=== PATIENT | female | born 1995 | race Two or more races ===

== ENCOUNTER 2016-06-06 13:27 | Emergency (ER) | payer OTHER ==
[2016-06-06 13:52] VITALS: RESP 16
[2016-06-06] MEDS ORDERED: NS 1,000 ML IV ONE (13:52)
[2016-06-06] MEDS ORDERED: ONDANSETRON 4 MG/2 ML VIAL IVP ONE (13:58)
--- NOTE | 2016-06-06 13:58 | UCPHY ---
H & P Time Seen by Provider: 06/06/16 13:37 Patient Type: New HPI/ROS: CHIEF COMPLAINT: Vomiting, UTI HISTORY OF PRESENT ILLNESS: The patient is a 21-year-old female who presents to the emergency department with vomiting since early this morning. The patient was woken from sleep with multiple episodes of vomiting. This has persisted throughout the morning. She denies any focal abdominal pain. No diarrhea. The patient states she has a UTI. 4 days ago she developed dysuria, hematuria and frequency. She has been self treating at home because she was concerned about antibiotics giving her yeast infection. No fevers or chills. No flank pain. REVIEW OF SYSTEMS: My complete review of systems is negative except as mentioned in the HPI. Past Medical/Surgical History: Includes WPW, AVNRT Past surgical history: Ablation x2 Social history: [facility] Smoking Status: Current some day smoker Physical Exam: Vitals noted GENERAL: Well-appearing, in no acute distress, alert. HEENT: Eyes normal to inspection, normal pharynx, no signs of dehydration. NECK: No thyromegaly, no lymphadenopathy, supple. RESPIRATORY: Clear to auscultation bilaterally, no rales, rhonchi or wheezing. CVS: Regular rate and rhythm, no rubs, murmurs, or gallops. ABDOMEN: Soft, nontender, nondistended, no organomegaly. Benign BACK: Normal to inspection, no CVA tenderness. SKIN: Normal color, no rash, warm, dry. No pallor. Multiple tattoos EXTREMITIES: No pedal edema, no calf tenderness, no Homans sign or cords, no joint swelling. NEURO/PSYCH: [Alert and oriented, normal mood and affect, normal motor sensory exam. Constitutional: Initial Vital Signs Temperature (C) 36.4 C 06/06/16 13:45 Heart Rate 80 06/06/16 13:45 Respiratory Rate 16 06/06/16 13:45 Blood Pressure 105/68 06/06/16 13:45 O2 Sat (%) 98 06/06/16 13:45 O2 Delivery Mode Room Air Allergies/Adverse Reactions: ibuprofen Allergy (Verified 06/06/16 13:44) Home Medications: Medication Instructions Recorded Cephalexin [Keflex (*)] 500 mg PO QID 7 Days 06/06/16 Ondansetron Odt [Zofran Odt 4 mg 4 mg PO Q4PRN PRN #7 tab 06/06/16 (*)] Phenazopyridine HCl [Pyridium] 100 mg PO TID #6 tab 06/06/16 Medical Decision Making ED Course/Re-evaluation: I discussed the plan with the patient and answered all her questions. When she arrived she appeared well. IV was placed. She was given normal saline 1 L for hydration. She was given Zofran 4 mg IV for her nausea and recent vomiting. Laboratory studies including urine were ordered. Patient was noted to have a positive UA. The patient was given Rocephin 1 g IV. I discussed the findings and explained the results. I rechecked the patient while here. She was doing well. She had no further episodes of emesis. Prior to discharge her abdomen was soft, nontender nondistended. I gave patient warnings prior to leaving. She will return with worsening symptoms. Differential Diagnosis: My differential includes but is not limited to urinary tract infection, pyelonephritis, bacteremia, sepsis, electrolyte abnormality, sugar abnormality, dysrhythmia, obstruction, perforation, peptic ulcer disease, , ectopic - Data Points Laboratory Results: Laboratory Results 06/06/16 13:54 06/06/16 13:54 06/06/16 06/06/16 06/06/16 14:00 13:54 13:54 WBC RBC Hgb Hct MCV MCH MCHC RDW Plt Count MPV Neut % (Auto) Lymph % (Auto) [place] % (Auto) Eos % (Auto) Baso % (Auto) Nucleat RBC Rel Count Absolute Neuts (auto) Absolute Lymphs (auto) Absolute Monos (auto) Absolute Eos (auto) Absolute Basos (auto) Absolute Nucleated RBC Immature Gran % Immature Gran # Sodium 140 mEq/L mEq/L (134-144) Potassium 4.2 mEq/L mEq/L (3.5-5.2) Chloride 104 mEq/L mEq/L (97-110) Carbon Dioxide 23 mEq/l mEq/l (22-31) Anion Gap 13 mEq/L mEq/L (8-16) BUN 13 mg/dL mg/dL (7-23) Creatinine 0.8 mg/dL mg/dL (0.6-1.0) Estimated GFR > 60 Glucose 82 mg/dL mg/dL (70-100) Calcium 9.6 mg/dL mg/dL (8.5-10.4) Beta HCG, Qual NEGATIVE Urine Color YELLOW Urine Appearance CLOUDY Urine pH 8.5 H (5.0-7.5) Ur Specific [place] 1.015 (1.002-1.030) Urine Protein TRACE H (NEGATIVE) Urine Ketones 1+ H (NEGATIVE) Urine Blood NEGATIVE (NEGATIVE) Urine Nitrate NEGATIVE (NEGATIVE) Urine Bilirubin NEGATIVE (NEGATIVE) Urine Urobilinogen 0.2 EU EU (0.2-1.0) Ur Leukocyte Esterase NEGATIVE (NEGATIVE) Urine RBC 5-10 /hpf H /hpf (0-3) Urine WBC 25-50 /hpf H /hpf (0-3) Ur Epithelial Cells 2+ /lpf H /lpf (NONE-1+) Urine Bacteria 2+ /hpf H /hpf (NONE SEEN) Urine Mucus TRACE /lpf /lpf (NONE-1+) Ur Culture Indicated? INDICATED H (NI) Urine Glucose NEGATIVE (NEGATIVE) 06/06/16 13:54 WBC 10.09 10^3/uL H 10^3/uL (3.80-9.50) RBC 4.23 10^6/uL 10^6/uL (4.18-5.33) Hgb 13.1 g/dL g/dL (12.6-16.3) Hct 38.0 % % (38.0-47.0) MCV 89.8 fL fL (81.5-99.8) MCH 31.0 pg pg (27.9-34.1) MCHC 34.5 g/dL g/dL (32.4-36.7) RDW 12.1 % % (11.5-15.2) Plt Count 244 10^3/uL 10^3/uL (150-400) MPV 10.3 fL fL (8.7-11.7) Neut % (Auto) 77.2 % H % (39.3-74.2) Lymph % (Auto) 15.7 % % (15.0-45.0) [place] % (Auto) 5.1 % % (4.5-13.0) Eos % (Auto) 1.1 % % (0.6-7.6) Baso % (Auto) 0.6 % % (0.3-1.7) Nucleat RBC Rel Count 0.0 % % (0.0-0.2) Absolute Neuts (auto) 7.80 10^3/uL H 10^3/uL (1.70-6.50) Absolute Lymphs (auto) 1.58 10^3/uL 10^3/uL (1.00-3.00) Absolute Monos (auto) 0.51 10^3/uL 10^3/uL (0.30-0.80) Absolute Eos (auto) 0.11 10^3/uL 10^3/uL (0.03-0.40) Absolute Basos (auto) 0.06 10^3/uL 10^3/uL (0.02-0.10) Absolute Nucleated RBC 0.00 10^3/uL 10^3/uL (0-0.01) Immature Gran % 0.3 % % (0.0-1.1) Immature Gran # 0.03 10^3/uL 10^3/uL (0.00-0.10) Sodium Potassium Chloride Carbon Dioxide Anion Gap BUN Creatinine Estimated GFR Glucose Calcium Beta HCG, Qual Urine Color Urine Appearance Urine pH Ur Specific [place] Urine Protein Urine Ketones Urine Blood Urine Nitrate Urine Bilirubin Urine Urobilinogen Ur Leukocyte Esterase Urine RBC Urine WBC Ur Epithelial Cells Urine Bacteria Urine Mucus Ur Culture Indicated? Urine Glucose Medications Given: Discontinued Medications Ondansetron HCl (Zofran) 4 mg IVP EDNOW ONE Stop: 06/06/16 13:59 Last Admin: 06/06/16 14:05 Dose: 4 mg Departure - Departure Disposition: Home, Routine, Self-Care Clinical Impression: Vomiting Qualifiers: Vomiting type: unspecified Vomiting Intractability: non-intractable Nausea presence: with nausea Qualified Code(s): R11.2 - Nausea with vomiting, unspecified Condition: Good Instructions: Acute Nausea and Vomiting (ED) Additional Instructions: Return with increasing pain, repeated vomiting or any other concerns. Take your entire course of antibiotics. Referrals: Rochelle Gilbert MD [Medical Doctor] - 3-4 days, if not improved Prescriptions: Cephalexin [Keflex (*)] 500 mg PO QID 7 Days Ondansetron Odt [Zofran Odt 4 mg (*)] 4 mg PO Q4PRN PRN #7 tab PRN Reason: For Nausea & Vomiting Phenazopyridine HCl [Pyridium] 100 mg PO TID #6 tab - PQRS PQRS Measurement: NA
[2016-06-06 14:02] LABS: % IMMATURE GRANULYOCYTES 0.3 % (0.0-1.1); ABSOLUTE IMMATURE GRANULOCYTES 0.03 10^3/uL (0.00-0.10); ADD DIFF? NO; ADD MORPH? NO; ADD SCAN? NO; ATYPICAL LYMPHOCYTE FLAG 0 (0-99); FRAGMENT RBC FLAG 0 (0-99); HEMOGLOBIN 13.1 g/dL (12.6-16.3); LEFT SHIFT FLG 0 (0-99); LIPEMIA HEMOLYSIS FLAG 90 (0-99); MEAN CELL HEMOGLOBIN CONCENTR. 34.5 g/dL (32.4-36.7); MEAN CELL VOLUME 89.8 fL (81.5-99.8); MEAN PLATELET VOLUME 10.3 fL (8.7-11.7); PLATELET CLUMPS FLAG 0 (0-99); PLATELET COUNT 244 10^3/uL (150-400); RED BLOOD CELL COUNT 4.23 10^6/uL (4.18-5.33); RED CELL DISTRIBUTION WIDTH 12.1 % (11.5-15.2)
[2016-06-06 14:06] LABS: COLOR YELLOW; LEUKOCYTE ESTERASE,URINE NEGATIVE (NEGATIVE); NITRITE,URINE NEGATIVE (NEGATIVE); PH,URINE 8.5 (5.0-7.5)
[2016-06-06 14:19] LABS: ANION GAP 13 mEq/L (8-16); CALCIUM 9.6 mg/dL (8.5-10.4); CARBON DIOXIDE 23 mEq/l (22-31); CHLORIDE 104 mEq/L (97-110); CREATININE 0.8 mg/dL (0.6-1.0); GLOMERULAR FILTRATION RATE > 60; GLUCOSE 82 mg/dL (70-100); POTASSIUM 4.2 mEq/L (3.5-5.2); SODIUM 140 mEq/L (134-144)
[2016-06-06 14:24] LABS: BACTERIA 2+ /hpf (NONE SEEN); MUCUS TRACE /lpf (NONE-1+); WBC,URINE 25-50 /hpf (0-3)
[2016-06-06 16:13] VITALS: BP 103/58; PULSE 79; TEMP 97.9; O2SAT 96
== END 2016-06-06 16:13 | disposition home or self-care (01) ==
LOC: CED 13:27
DX: R11.10 Vomiting, unspecified (principal); N39.0 Urinary tract infection, site not specified; Z72.0 Tobacco use
CPT/HCPCS: 80048-PO; 81003-PO; 81015-PO; 84703-PO; 85025-PO; 96361-PO; 96365-PO; 99203-PO; G0463-PO; J0696; J2405

== ENCOUNTER 2017-02-21 00:03 | Emergency (ER) | payer OTHER ==
[2017-02-21] MEDS ORDERED: LORazepam 2 MG/ML INJ IVP ONE ×2 (00:06)
[2017-02-21] MEDS ORDERED: NS 1,000 ML IV ONE ×2 (00:06)
--- NOTE | 2017-02-21 00:09 | EDPHY ---
H & P HPI/ROS: HPI CHIEF COMPLAINT: Anxiety attack, alcohol intoxication HISTORY OF PRESENT ILLNESS: Patient is a 22-year-old female, history of WPW, AVRNT, VSD, presents emergency room highly intoxicated with alcohol. She presents by private vehicle with liliana. They were at a show this evening. She had 10 shots of liquor. She started feeling anxious. Apparently there was some kind of verbal confrontation with her liliana's ex-girlfriend. She became anxious and started having a anxiety panic attack. She presents emergency room hyperventilating and screaming. She is intoxicated with alcohol. She denies pain anywhere. Denies drug use. Past Medical History: WPW, AVRNT, VSD, anxiety Past Surgical History: No recent surgery Social History: Large amount of alcohol this evening. Denies illicit drugs tobacco. Family History: Noncontributory. ROS REVIEW OF SYSTEMS: A comprehensive 10 point review of systems is otherwise negative aside from elements mentioned in the history of present illness. Exam Constitutional screaming, anxious, hyperventilating triage nursing summary reviewed, vital signs reviewed, awake/alert. Eyes normal conjunctivae and sclera, EOMI, PERRLA. HENT normal inspection, atraumatic, moist mucus membranes, no epistaxis, neck supple/ no meningismus, no raccoon eyes. Respiratory hyperventilation, tachypnea clear to auscultation bilaterally, normal breath sounds, no respiratory distress, no wheezing. Cardiovascular rate normal, regular rhythm, no murmur, no edema, distal pulses normal. Gastrointestinal soft, non-tender, no rebound, no guarding, normal bowel sounds, no distension, no pulsatile mass. Genitourinary no CVA tenderness. Musculoskeletal no midline vertebral tenderness, full range of motion, no calf swelling, no tenderness of extremities, no meningismus, good pulses, neurovascularly intact. Skin pink, warm, & dry, no rash, skin atraumatic. Neurologic awake, alert and oriented x 3, AAOx3, moves all 4 extremities equally, motor intact, sensory intact, CN II-XII intact, normal cerebellar, normal vision, normal speech. Psychiatric acute anxiety Heme/Lymph/Immune no lymphadenopathy. Differential Diagnosis: Includes but is not limited to in a particular order, acute anxiety attack, panic attack, acute alcohol intoxication, electrolyte disturbance, dehydration Medical Decision Making: Plan for this patient IV establishment IV fluid bolus 1 L normal saline, IV Ativan 1 mg, check basic blood work. Re-evaluate. Check alcohol level. Check drug screen. Fiance at bedside. Re-evaluation: 1247AM: Serum alcohol level 222. 1247: Patient is much more calmer after IV Ativan 1 mg. resting comfortably at this time. 0245: Patient is sleeping. No complaints. Feels much better after IV Ativan. Initial serum alcohol level 222. Patient ready for discharge. I have answered all her questions she denies want hurt herself or anybody else. She got very anxious tonight and intoxicated alcohol. Significant other at bedside. Agreeable for discharge home. Source: Patient - Medical/Surgical History Hx Cardiac Disease: Yes Other PMH: PCP in [place]other state. Cardiac history : VSD, ablations for WPW, - Social History Smoking Status: Current some day smoker Constitutional: Initial Vital Signs Heart Rate 108 H 02/21/17 00:03 Respiratory Rate 26 H 02/21/17 00:03 Blood Pressure 141/89 H 02/21/17 00:03 O2 Sat (%) 97 02/21/17 00:03 O2 Delivery Mode Room Air Allergies/Adverse Reactions: ibuprofen Allergy (Verified 06/06/16 13:44) Home Medications: Medication Instructions Recorded [employer] ([place]apro 02/21/17 Medical Decision Making - Data Points Laboratory Results: Laboratory Results 02/21/17 00:10 02/21/17 00:10 02/21/17 02/21/17 02/21/17 00:45 00:10 00:10 WBC RBC Hgb Hct MCV MCH MCHC RDW Plt Count MPV Neut % (Auto) Lymph % (Auto) [place] % (Auto) Eos % (Auto) Baso % (Auto) Nucleat RBC Rel Count Absolute Neuts (auto) Absolute Lymphs (auto) Absolute Monos (auto) Absolute Eos (auto) Absolute Basos (auto) Absolute Nucleated RBC Immature Gran % Immature Gran # Sodium 147 mEq/L H mEq/L (134-144) Potassium 4.3 mEq/L mEq/L (3.5-5.2) Chloride 109 mEq/L mEq/L (97-110) Carbon Dioxide 18 mEq/l L mEq/l (22-31) Anion Gap 20 mEq/L H mEq/L (8-16) BUN 8 mg/dL mg/dL (7-23) Creatinine 0.8 mg/dL mg/dL (0.6-1.0) Estimated GFR > 60 Glucose 98 mg/dL mg/dL (70-100) Calcium 9.6 mg/dL mg/dL (8.5-10.4) Beta HCG, Qual NEGATIVE Urine Opiates Screen NEGATIVE (NEGATIVE) Urine Barbiturates NEGATIVE (NEGATIVE) Ur Phencyclidine Scrn NEGATIVE (NEGATIVE) Ur Amphetamine Screen NEGATIVE (NEGATIVE) U Benzodiazepines Scrn NEGATIVE (NEGATIVE) Urine Cocaine Screen NEGATIVE (NEGATIVE) U Marijuana (THC) Screen NEGATIVE (NEGATIVE) Ethyl Alcohol 222 mg/dL H mg/dL (0-10) 02/21/17 00:10 WBC 10.08 10^3/uL H 10^3/uL (3.80-9.50) RBC 4.84 10^6/uL 10^6/uL (4.18-5.33) Hgb 15.7 g/dL g/dL (12.6-16.3) Hct 44.1 % % (38.0-47.0) MCV 91.1 fL fL (81.5-99.8) MCH 32.4 pg pg (27.9-34.1) MCHC 35.6 g/dL g/dL (32.4-36.7) RDW 12.9 % % (11.5-15.2) Plt Count 264 10^3/uL 10^3/uL (150-400) MPV 10.6 fL fL (8.7-11.7) Neut % (Auto) 55.5 % % (39.3-74.2) Lymph % (Auto) 31.9 % % (15.0-45.0) [place] % (Auto) 8.0 % % (4.5-13.0) Eos % (Auto) 3.3 % % (0.6-7.6) Baso % (Auto) 1.0 % % (0.3-1.7) Nucleat RBC Rel Count 0.0 % % (0.0-0.2) Absolute Neuts (auto) 5.59 10^3/uL 10^3/uL (1.70-6.50) Absolute Lymphs (auto) 3.22 10^3/uL H 10^3/uL (1.00-3.00) Absolute Monos (auto) 0.81 10^3/uL H 10^3/uL (0.30-0.80) Absolute Eos (auto) 0.33 10^3/uL 10^3/uL (0.03-0.40) Absolute Basos (auto) 0.10 10^3/uL 10^3/uL (0.02-0.10) Absolute Nucleated RBC 0.00 10^3/uL 10^3/uL (0-0.01) Immature Gran % 0.3 % % (0.0-1.1) Immature Gran # 0.03 10^3/uL 10^3/uL (0.00-0.10) Sodium Potassium Chloride Carbon Dioxide Anion Gap BUN Creatinine Estimated GFR Glucose Calcium Beta HCG, Qual Urine Opiates Screen Urine Barbiturates Ur Phencyclidine Scrn Ur Amphetamine Screen U Benzodiazepines Scrn Urine Cocaine Screen U Marijuana (THC) Screen Ethyl Alcohol Medications Given: Discontinued Medications Sodium Chloride (Ns) 1,000 mls @ 0 mls/hr IV ONCE ONE PRN Reason: Wide Open Stop: 02/21/17 00:07 Last Admin: 02/21/17 00:18 Dose: 1,000 mls Lorazepam (Ativan Injection) 1 mg IVP EDNOW ONE Stop: 02/21/17 00:07 Last Admin: 02/21/17 00:19 Dose: 1 mg Departure - Departure Disposition: Home, Routine, Self-Care Clinical Impression: Anxiety attack Alcohol intoxication Qualifiers: Complication of substance-induced condition: uncomplicated Qualified Code(s): F10.920 - Alcohol use, unspecified with intoxication, uncomplicated Condition: Good Instructions: Alcohol Intoxication (ED), Abuse of Alcohol (ED), Anxiety (ED) Additional Instructions: 1.Return to the emergency room if he develops worsening symptoms questions or concerns.
[2017-02-21 00:16] LABS: PLATELET COUNT 264 10^3/uL (150-400)
[2017-02-21 03:06] VITALS: BP 111/70; PULSE 70; RESP 18; O2SAT 98
== END 2017-02-21 03:05 | disposition home or self-care (01) ==
PROC: 3E0337Z Introduction of Electrolytic and Water Balance Substance into Peripheral Vein, Percutaneous Approach (ICD-10-PCS; principal; 2017-02-21)
DX: F10.920 Alcohol use, unspecified with intoxication, uncomplicated (principal); F41.9 Anxiety disorder, unspecified; F17.200 Nicotine dependence, unspecified, uncomplicated
CPT/HCPCS: 80305; 96374; G0480; J2060

== ENCOUNTER 2018-04-21 04:02 | Emergency (ER) | payer OTHER ==
--- NOTE | 2018-04-21 04:11 | EDPHY ---
H & P Stated Complaint: SI - m1 Source: Patient, Police - Medical/Surgical History Hx Cardiac Disease: Yes Other PMH: PCP in ANother state. Cardiac history : VSD, ablations for WPW/AVNRT - Social History Smoking Status: Current some day smoker Time Seen by Provider: 04/21/18 04:11 HPI/ROS: HPI CHIEF COMPLAINT: Suicidal ideation. M1 hold by police. HISTORY OF PRESENT ILLNESS: Patient is a 23-year-old female, presents emergency room with very severe depression, suicidal ideation without a specific plan. Called police and 911 tonight for suicidal ideation. Past Medical History: Depression. Past Surgical History: No recent surgery Social History: Denies drugs alcohol tobacco. Had alcohol earlier tonight. But does not drink regularly Family History: Noncontributory ROS REVIEW OF SYSTEMS: 10 Systems were reviewed and negative with the exception of the elements mentioned in the history of present illness. Exam Constitutional triage nursing summary reviewed, vital signs reviewed, awake/ alert. Eyes normal conjunctivae and sclera, EOMI, PERRLA. HENT normal inspection, atraumatic, moist mucus membranes, no epistaxis, neck supple/ no meningismus, no raccoon eyes. Respiratory clear to auscultation bilaterally, normal breath sounds, no respiratory distress, no wheezing. Cardiovascular rate normal, regular rhythm, no murmur, no edema, distal pulses normal. Gastrointestinal soft, non-tender, no rebound, no guarding, normal bowel sounds, no distension, no pulsatile mass. Genitourinary no CVA tenderness. Musculoskeletal no midline vertebral tenderness, full range of motion, no calf swelling, no tenderness of extremities, no meningismus, good pulses, neurovascularly intact. Skin pink, warm, & dry, no rash, skin atraumatic. Neurologic awake, alert and oriented x 3, AAOx3, moves all 4 extremities equally, motor intact, sensory intact, CN II-XII intact, normal cerebellar, normal vision, normal speech. Psychiatric flat affect, depressed. Suicidal. Heme/Lymph/Immune no lymphadenopathy. Differential Diagnosis: Includes but is not limited to in a particular order mood disorder, suicidal ideation, depression. Medical Decision Making: Plan for this patient blood draw for medical clearance , drug screen, alcohol level, placed on M1 hold by [facility]. She will need mental health evaluation. Re-evaluation: 07: Patient on M1 hold. Here with suicidal ideation. Needs mental health evaluation. Signed over at 7:00 a.m. Shift change to Dr. Peralta. (Beck Avendaño) 0700: I assumed care of this patient from Dr. Avendaño at shift change. 1007: I spoke with Kayden who performed the mental health evaluation. He reports the patient is seen by a therapist and as a plan for a followup visit next week. This patient is safe to be discharged home with plan for follow up with her therapist. I have dropped the M1 hold. (Joel Peralta) Constitutional: Initial Vital Signs Heart Rate 87 04/21/18 04:06 Respiratory Rate 16 04/21/18 04:06 Blood Pressure 128/69 H 04/21/18 04:06 O2 Sat (%) 95 04/21/18 04:06 O2 Delivery Mode Room Air Allergies/Adverse Reactions: ibuprofen Allergy (Verified 04/21/18 04:09) Home Medications: Medication Instructions Recorded Lexapro 02/21/17 - Data Points Laboratory Results: Laboratory Results 04/21/18 04:59 04/21/18 04:59 Departure - Departure Disposition: Home, Routine, Self-Care Clinical Impression: Depression Condition: Fair Instructions: Depression (ED) Additional Instructions: Follow-up with your mental health provider as directed. Return to the ED for thoughts of self-harm, racing thoughts or other concerns. Referrals: [facility],. [Clinic] - As per Instructions
[2018-04-21 05:03] LABS: PLATELET COUNT 282 10^3/uL (150-400)
[2018-04-21 10:24] VITALS: BP 111/69
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
--- NOTE | 2018-04-21 11:59 | ASMTTCLDSP ---
TLC Discharge Disposition Disposition: Answers: Discharge If Answers: Yes DISCHARGED: Patient/family given suicide hotline info & [employer] brochure? Disposition Notes: Notes: Pt stated commitment or ability to keep self safe, denied thoughts of self harm or harm to others. Pt expressed a desire to f/u with her next therapist appointment on 04/30/18 at 1:30 pm. Pt was given local hotline information and SAM[employer] brochure After an Attempt and encouraged to follow up with her therapist appointment. Discharge Concerns/Recommendations: Notes: In consultation with [facility] ED physician, Joel Peralta MD, Dr. Peralta concurred that pt does not appear to meet 27-65 criteria requiring psychiatric hospitalization as pt does not appear to be an imminent risk of harm to self/others/gravely disabled due to a mental illness condition. Dr. Peralta provided verbal order read back vacating M1 hold at 1010 hrs. Was patient given the Answers: Not applicable Inpatient Behavioral Health Prohibited Belongings List while in the ED? Psychiatrist vacating M1 Joel Peralta MD Hold: Date and time M1 hold 04/21/2018 10:10 AM vacated (time format is hh:mm): Type of Hold: Answers: M1/72-hour Hold Hold initiated by: Answers: Police Date Signed: 04/21/2018 11:59 AM Electronically Signed By:Kayden Ferrara
== END 2018-04-21 10:31 | disposition home or self-care (01) ==
DX: F32.9 Major depressive disorder, single episode, unspecified (principal)
CPT/HCPCS: 80305; G0480